=== PATIENT | female | born 1935 | race Caucasian/White ===

== ENCOUNTER → 2023-06-14 | Outpatient (CLI) | payer OTHER, SELFPAY ==
[2023-06-18 10:07] LABS: QNTFERON TB Mitogen Value > 10.00 IU/mL (.); QNTFERON TB Nil Value 0.08 IU/mL (.); QNTFERON TB1+ Ag Value 0.08 IU/mL (.); QNTIFERON TB Positive Criteria Negative (Negative)
== END | disposition home or self-care (01) ==
PROVIDERS: PCP Internal Medicine Infectious Disease; Referring Provider Physician Assistant; Visit Provider Physician Assistant
DX: L40.0 Psoriasis vulgaris (principal); Z79.899 Other long term (current) drug therapy; D48.5 Neoplasm of uncertain behavior of skin
CPT/HCPCS: 36415; 86480